=== PATIENT | male | born 1995 | race Caucasian/White ===

== ENCOUNTER 2021-04-22 16:09 | Emergency (ER) | payer SELFPAY ==
[~2021-04-22] VITALS: Ht 175 cm; Wt 86.1 kg
--- NOTE | 2021-04-22 16:39 | ED Abdominal Pain ---
General Chief Complaint: Abdominal/GI Problems Stated Complaint: ABD PAIN Nursing Triage Note: Patient ambulatory to ER with c/o upper abdominal pain x 3 days. Patient states the pain is intermittent and describes it as dull that turns into sharp pain. Pt denies any nausea, vomiting or diarrhea. Source of Information: Patient Exam Limitations: No Limitations History of Present Illness Date Seen by Provider: Apr 22, 2021 Time Seen by Provider: 16:30 Initial Comments Patient is a 25-year-old male who presents to the emergency department today with a chief complaint of left-sided abdominal pain. Patient states onset about 3 days ago. He states its been constant. Nothing really makes it any worse. He states he has been getting up in the middle of the night to eat and he thinks that may make it feel little bit better. Patient denies any nausea or vomiting. No fevers or chills. He has been taking 2 or 3 ibuprofen at a time 2 or 3 times a day for the pain. No urinary complaints. Patient does state that over the course of the last year he has had multiple episodes of bloody stool. He states it will come on and turn the toilet red. He states it goes away on its own. He has never been seen by For this before. No family history of colon cancer that he is aware of but his dad did about 10 years ago from lung cancer. Patient does not smoke cigarettes anymore. Does not really drink alcohol. All other review of systems reviewed and negative except as stated. Timing/Duration: 2-3 Days Severity/Quality: Aching, Cramping Location: LUQ, LLQ Radiation: No Radiation Activities at Onset: None Modifying Factors: Improves With Analgesics Associated Symptoms: Denies Symptoms Allergies and Home Medications Allergies Coded Allergies: No Known Drug Allergies (Unverified , 04/22/21) Patient Home Medication List Home Medication List Reviewed: Yes Review of Systems Review of Systems Constitutional: see HPI EENTM: No Symptoms Reported Respiratory: No Symptoms Reported Gastrointestinal: Abdominal Pain Genitourinary: No Symptoms Reported Musculoskeletal: no symptoms reported Skin: no symptoms reported All Other Systems Reviewed Negative Unless Noted: Yes Past Feabovy-Mrtmhn-Wiksco Hx Patient Social History Tobacco Use?: No Smokeless Tobacco Frequency: Current Everyday User Use of E-Cig and/or Vaping dev: No Substance use?: No Alcohol Use?: Yes Alcohol type: Beer Alcohol Frequency: Rarely Pt feels they are or have been: No Past Medical History Surgery/Hospitalization HX: ACL repair left knee Physical Exam Vital Signs Vital Signs - First Documented 04/22/21 16:18 Temp 37.0 Pulse 92 Resp 16 B/P (MAP) 136/84 (101) Pulse Ox 99 O2 Delivery Room Air Capillary Refill : Less Than 3 Seconds Height/Weight/BMI Height: '" Weight: lbs. oz. kg; 28.00 BMI Method: General Appearance: WD/WN, no apparent distress HEENT: PERRL/EOMI Respiratory: lungs clear, normal breath sounds, no respiratory distress, no accessory muscle use Cardiovascular: regular rate, rhythm Gastrointestinal: normal bowel sounds, non tender, soft, no organomegaly Extremities: normal range of motion, normal inspection Neurologic/Psychiatric: alert, normal mood/affect, oriented x 3 Skin: normal color, warm/dry Progress/Results/Core Measures Results/Orders Lab Results Laboratory Tests Test 04/22/21 16:23 Range/Units White Blood Count 7.5 4.3-11.0 10^3/uL Red Blood Count 4.97 4.30-5.52 10^6/uL Hemoglobin 14.5 13.3-17.7 g/dL Hematocrit 44 40-54 % Mean Corpuscular Volume 88 80-99 fL Mean Corpuscular Hemoglobin 29 25-34 pg Mean Corpuscular Hemoglobin Concent 33 32-36 g/dL Red Cell Distribution Width 13.2 10.0-14.5 % Platelet Count 290 130-400 10^3/uL Mean Platelet Volume 10.3 9.0-12.2 fL Immature Granulocyte % (Auto) 0 % Neutrophils (%) (Auto) 77 H 42-75 % Lymphocytes (%) (Auto) 15 12-44 % Monocytes (%) (Auto) 7 0-12 % Eosinophils (%) (Auto) 1 0-10 % Basophils (%) (Auto) 0 0-10 % Neutrophils # (Auto) 5.8 1.8-7.8 10^3/uL Lymphocytes # (Auto) 1.1 1.0-4.0 10^3/uL Monocytes # (Auto) 0.5 0.0-1.0 10^3/uL Eosinophils # (Auto) 0.1 0.0-0.3 10^3/uL Basophils # (Auto) 0.0 0.0-0.1 10^3/uL Immature Granulocyte # (Auto) 0.0 0.0-0.1 10^3/uL Sodium Level 141 135-145 MMOL/L Potassium Level 3.8 3.6-5.0 MMOL/L Chloride Level 104 98-107 MMOL/L Carbon Dioxide Level 26 21-32 MMOL/L Anion Gap 11 5-14 MMOL/L Blood Urea Nitrogen 17 7-18 MG/DL Creatinine 1.04 0.60-1.30 MG/DL Estimat Glomerular Filtration Rate > 60 BUN/Creatinine Ratio 16 Glucose Level 92 70-105 MG/DL Calcium Level 9.8 8.5-10.1 MG/DL Corrected Calcium 8.5-10.1 MG/DL Total Bilirubin 0.4 0.1-1.0 MG/DL Aspartate Amino Transf (AST/SGOT) 29 5-34 U/L Alanine Aminotransferase (ALT/SGPT) 39 0-55 U/L Alkaline Phosphatase 43 40-136 U/L Total Protein 7.4 6.4-8.2 GM/DL Albumin 4.8 H 3.2-4.5 GM/DL Lipase 70 8-78 U/L My Orders Orders - ROYCE PEÑA MD Cbc And Manual Diff (04/22/21 16:36) Ed Iv/Invasive Line Start (04/22/21 16:36) Comprehensive Metabolic Panel (04/22/21 16:36) Lipase (04/22/21 16:36) Vital Signs/I&O 04/22/21 16:18 Temp 37.0 Pulse 92 Resp 16 B/P (MAP) 136/84 (101) Pulse Ox 99 O2 Delivery Room Air Blood Pressure Mean: 101 Departure Impression Primary Impression: Abdominal pain Qualified Codes: R10.32 - Left lower quadrant pain Disposition: HOME, SELF-CARE Condition: Stable Departure-Patient Inst. Decision time for Depature: 17:30 Referrals: [facility] [place] [place],LOCAL PHYSICIAN (PCP) Primary Care Physician Patient Instructions: Abdominal Pain, Adult ED Add. Discharge Instructions: Drink plenty of fluids to stay well-hydrated. Continue to take ibuprofen 2 to 3 tablets every 6 hours as needed for pain you can alternate with a little Tylenol. I would recommend you take an acid pharmacy retail support specialist such as [id number] Pepcid, Zantac or Prilosec for the next couple of weeks daily to help alleviate your symptoms. You will need to follow-up with a primary care provider regarding your bloody stools. Come back to the emergency department for any worsening pain especially with nausea vomiting, fever or any other emergent concerning symptoms. ROYCE PEÑA MD Apr 22, 2021 16:39
[2021-04-22 16:51] LABS: ALBUMIN 4.8 GM/DL (3.2-4.5)
[2021-04-22 16:52] LABS: BASOPHILS % (AUTO) 0 % (0-10); CHLORIDE 104 MMOL/L (98-107); EOSINOPHILS # (AUTO) 0.1 10^3/uL (0.0-0.3); EOSINOPHILS % (AUTO) 1 % (0-10); HEMATOCRIT 44 % (40-54); HEMOGLOBIN 14.5 g/dL (13.3-17.7); LYMPHOCYTES # (AUTO) 1.1 10^3/uL (1.0-4.0); LYMPHOCYTES % (AUTO) 15 % (12-44); MEAN CORPUSCULAR HEMOGLOBIN 29 pg (25-34); MEAN CORPUSCULAR HGB CONC 33 g/dL (32-36); MEAN CORPUSCULAR VOLUME 88 fL (80-99); MEAN PLATELET VOLUME 10.3 fL (9.0-12.2); MONOCYTES # (AUTO) 0.5 10^3/uL (0.0-1.0); MONOCYTES % (AUTO) 7 % (0-12); NEUTROPHILS # (AUTO) 5.8 10^3/uL (1.8-7.8); NEUTROPHILS % (AUTO) 77 % (42-75); PLATELET COUNT 290 10^3/uL (130-400); POTASSIUM 3.8 MMOL/L (3.6-5.0); SODIUM 141 MMOL/L (135-145); WHITE BLOOD COUNT 7.5 10^3/uL (4.3-11.0)
[2021-04-22 16:53] LABS: CALCIUM 9.8 MG/DL (8.5-10.1)
[2021-04-22 16:54] LABS: GLUCOSE 92 MG/DL (70-105); TOTAL PROTEIN 7.4 GM/DL (6.4-8.2)
[2021-04-22 16:55] LABS: CARBON DIOXIDE 26 MMOL/L (21-32)
[2021-04-22 16:56] LABS: BILIRUBIN,TOTAL 0.4 MG/DL (0.1-1.0)
[2021-04-22 16:57] LABS: ALKALINE PHOSPHATASE 43 U/L (40-136); CREATININE SERUM 1.04 MG/DL (0.60-1.30); GFR ESTIMATED > 60
[2021-04-22 16:59] LABS: BUN/CREATININE RATIO 16
[2021-04-22 17:00] LABS: ALANINE AMINOTRANSFERASE 39 U/L (0-55)
[2021-04-22 17:01] LABS: LIPASE 70 U/L (8-78)
[2021-04-22 17:41] VITALS: BP 123/57
[2021-04-22 18:03] LABS: LYMPHOCYTES % (MANUAL) 22 %; MONOCYTES % (MANUAL) 6 %; NEUTROPHILS % (MANUAL) 72 %; RBC MORPH NORMAL
== END 2021-04-22 17:42 | disposition home or self-care (01) ==
LOC: ER 16:11
DX: R10.31 Right lower quadrant pain (principal); R10.32 Left lower quadrant pain; F17.290 Nicotine dependence, other tobacco product, uncomplicated
CPT/HCPCS: 36415; 80053; 83690; 85007; 85027

== ENCOUNTER 2021-05-28 16:23 | Emergency (ER) | payer SELFPAY ==
[~2021-05-28] VITALS: Ht 175 cm; Wt 84.0 kg
--- OUTSIDE RECORDS SUMMARY | 2021-05-28 16:29 | XMS REPORT | Clinical Summary ---
Author Author [facility] Address Unknown Phone Unavailable Care Team Providers Care [employer] Dean Name Role Phone Bryanna Smith MD PCP Allergies Not on File Medications Not on file Active Problems Not on file Social History Date Tobacco Use Types Packs/Day Years Used Never Assessed Sex Assigned at Date Recorded Not on file Last Filed Vital Signs Not on file Plan of Treatment Health Maintenance Due Date Last Done Comments Varicella Vaccines (1 of 1995 2 - 2-dose childhood series) HPV Vaccines (1 - Male 2005 2-dose series) COVID-19 Vaccine (1) 2006 Hepatitis C Screening 2012 DTaP,Tdap,and Td Vaccines 2013 (1 - Tdap) MMR Vaccines-Adult 2013 Influenza Vaccine (#1) 2021 Pneumo-Vaccine: 65+Yrs (1 2059 of 1 - PPSV23) HIB Vaccines Aged Out No longer eligible based on patient's age to complete this topic IPV Vaccines Aged Out No longer eligible based on patient's age to complete this topic Meningococcal Vaccine Aged Out No longer eligib le based on patient's age to complete this topic Pneumo-Vaccine: Peds (0-5 Aged Out No longer el igible based on patient's age to Yrs) & At-Risk Patients complete this topic (6-64 Yrs) Rotavirus Vaccines Aged Out No longer eligible based on patient's age to complete this topic Results Not on filefrom Last 3 Months Insurance Type Payer Benefit Subscriber ID Effective Phone Address Plan / Dates Group COMMERCIAL INSURANCE COMMERCIAL [id number] 2015 [id number] -[place] [place] [place] [address] Advance Directives For more information, please contact: [phone] Patient Cyber Security Manager Explanation Type Date Recorded Advance Directives and Living Will Power of Rose Grower Care Teams Start Date End Date [employer] Dean Relationship Specialty 05/10/15 Bryanna Smith MD PCP - General [address] [place] [address]
--- NOTE | 2021-05-28 16:38 | ED Syncope ---
General Chief Complaint: Dizziness/Syncope Stated Complaint: SYNCOPE Source of Information: Patient, EMS Exam Limitations: No Limitations History of Present Illness Date Seen by Provider: May 28, 2021 Time Seen by Provider: 16:25 Initial Comments Patient is a 25-year-old male who presents to the emergency department by ambulance today with a chief complaint of syncope. Patient reportedly was going outside to check the mail and when he did not return back inside the house family members went out to find him passed out on the porch. Patient states he does not have a whole lot of memory of the events of the day. He works nights at [employer] Patient states that he slept about 4 5 hours today. He states that he did eat while on shift last night. He denies any headache, vision changes, nausea, abdominal pain. No chest pain or shortness of breath. Patient does not believe that he hit his head. Patient does not take any medications on a daily basis. States that he does not smoke, drink or do any illicit drugs. Has not been ill recently. Is not Covid vaccinated. Denies sick contacts. States he has never had a syncopal event before. Wonders if it might be "the heat". No family history of heart disease or sudden cardiac . Currently states that he is feeling better and almost back to normal. Of note the patient is quite tachycardic on arrival in the 120s with a normal blood pressure, oxygen saturations 94 to 95% on room air. All other review of systems reviewed and negative except as stated. Timing/Prior Episodes: No Prior History Symptoms Prior to Episode: Unknown Precipitating Factors: Standing (going outside to check the mail) Loss of Consciousness: Unsure Current Symptoms: Back to Normal Allergies and Home Medications Allergies Coded Allergies: No Known Drug Allergies (Unverified , 04/22/21) Patient Home Medication List Home Medication List Reviewed: Yes Review of Systems Constitutional: see HPI EENTM: no symptoms reported Respiratory: no symptoms reported Cardiovascular: no symptoms reported Gastrointestinal: no symptoms reported Genitourinary: no symptoms reported Musculoskeletal: no symptoms reported Skin: no symptoms reported Past [place]-Pdifns-Civrwk Hx Past Medical History Surgery/Hospitalization HX: ACL repair left knee Physical Exam Vital Signs Vital Signs - First Documented 05/28/21 16:28 Temp 36.5 Pulse 125 Resp 18 B/P (MAP) 131/68 (89) Pulse Ox 97 Capillary Refill : Height, Weight, BMI Height: '" Weight: lbs. oz. kg; 28.00 BMI Method: General Appearance: No Apparent Distress, WD/WN HEENT: PERRL/EOMI, Normal ENT Inspection Neck: Full Range of Motion, Normal Inspection, Non Tender, Supple Cardiovascular: Regular Rate, Rhythm, No Murmur, Normal Peripheral Pulses, Tachycardia Respiratory: Lungs Clear, Normal Breath Sounds, No Accessory Muscle Use, No Respiratory Distress Gastrointestinal: Non Tender, Soft Back: Normal Inspection Extremities: Normal Capillary Refill, Normal Inspection, Normal Range of Motion, Non Tender, No Calf Tenderness Neurologic/Psychiatric: Alert, Oriented x3, No Motor/Sensory Deficits, Normal Mood/Affect, ed transporter II-XII Norm as Tested, Other (no focal neurologic deficits) Cranial Nerves: Normal Hearing, Normal Speech, PERRL Motor/Sensory: No Motor Deficit, No Sensory Deficit Skin: Normal Color, Warm/Dry Progress/Results/Core Measures Results/Orders Lab Results Laboratory Tests Test 05/28/21 16:29 05/28/21 16:49 Range/Units White Blood Count 10.7 4.3-11.0 10^3/uL Red Blood Count 5.18 4.30-5.52 10^6/uL Hemoglobin 15.2 13.3-17.7 g/dL Hematocrit 48 40-54 % Mean Corpuscular Volume 93 80-99 fL Mean Corpuscular Hemoglobin 29 25-34 pg Mean Corpuscular Hemoglobin Concent 32 32-36 g/dL Red Cell Distribution Width 12.6 10.0-14.5 % Platelet Count 316 130-400 10^3/uL Mean Platelet Volume 10.6 9.0-12.2 fL Immature Granulocyte % (Auto) 0 % Neutrophils (%) (Auto) 51 42-75 % Lymphocytes (%) (Auto) 34 12-44 % Monocytes (%) (Auto) 10 0-12 % Eosinophils (%) (Auto) 4 0-10 % Basophils (%) (Auto) 1 0-10 % Neutrophils # (Auto) 5.5 1.8-7.8 10^3/uL Lymphocytes # (Auto) 3.6 1.0-4.0 10^3/uL Monocytes # (Auto) 1.1 H 0.0-1.0 10^3/uL Eosinophils # (Auto) 0.4 H 0.0-0.3 10^3/uL Basophils # (Auto) 0.1 0.0-0.1 10^3/uL Immature Granulocyte # (Auto) 0.0 0.0-0.1 10^3/uL Sodium Level 138 135-145 MMOL/L Potassium Level 4.8 3.6-5.0 MMOL/L Chloride Level 103 98-107 MMOL/L Carbon Dioxide Level 12 L 21-32 MMOL/L Anion Gap 23 H 5-14 MMOL/L Blood Urea Nitrogen 12 7-18 MG/DL Creatinine 1.39 H 0.60-1.30 MG/DL Estimat Glomerular Filtration Rate 62 BUN/Creatinine Ratio 9 Glucose Level 90 70-105 MG/DL Calcium Level 9.8 8.5-10.1 MG/DL Total Creatine Kinase 184 30-200 U/L Urine Color YELLOW Urine Clarity CLEAR Urine pH 6.0 5-9 Urine Specific [place] >=1.030 1.016-1.022 Urine Protein 1+ H NEGATIVE Urine Glucose (UA) NEGATIVE NEGATIVE Urine Ketones NEGATIVE NEGATIVE Urine Nitrite NEGATIVE NEGATIVE Urine Bilirubin NEGATIVE NEGATIVE Urine Urobilinogen 0.2 < = 1.0 MG/DL Urine Leukocyte Esterase NEGATIVE NEGATIVE Urine RBC (Auto) TRACE-I NEGATIVE Urine RBC 0-2 /HPF Urine WBC NONE /HPF Urine Squamous Epithelial Cells NONE /HPF Urine Renal Epithelial Cells NONE /HPF Urine Crystals NONE /LPF Urine Bacteria NEGATIVE /HPF Urine Casts NONE /LPF Urine Mucus NEGATIVE /LPF Urine Other LG SPERM H /HPF Urine Culture Indicated NO Urine Opiates Screen NEGATIVE NEGATIVE Urine Oxycodone Screen NEGATIVE NEGATIVE Urine Methadone Screen NEGATIVE NEGATIVE Urine Propoxyphene Screen NEGATIVE NEGATIVE Urine Barbiturates Screen NEGATIVE NEGATIVE Ur Tricyclic Antidepressants Screen NEGATIVE NEGATIVE Urine Phencyclidine Screen NEGATIVE NEGATIVE Urine Amphetamines Screen POSITIVE H NEGATIVE Urine Methamphetamines Screen NEGATIVE NEGATIVE Urine Benzodiazepines Screen NEGATIVE NEGATIVE Urine Cocaine Screen NEGATIVE NEGATIVE Urine Cannabinoids Screen NEGATIVE NEGATIVE My Orders Orders - ROYCE PEÑA MD Ed Iv/Invasive Line Start (05/28/21 16:34) Cbc With Automated Diff (05/28/21 16:34) Basic Metabolic Panel (05/28/21 16:34) Creatine Kinase (05/28/21 16:34) Ua Culture If Indicated (05/28/21 16:34) Drug Screen Stat (Urine) (05/28/21 16:34) Ekg Tracing (05/28/21 16:34) Chest 1 View, Ap/Pa Only (05/28/21 16:34) Ns Iv 1000 Ml (Sodium Chloride 0.9%) (05/28/21 16:45) Vital Signs/I&O 05/28/21 16:28 Temp 36.5 Pulse 125 Resp 18 B/P (MAP) 131/68 (89) Pulse Ox 97 Progress Progress Note : Time: 17:27 Progress Note Patient reevaluated after a liter of saline per EMS completed. Feeling better, heart rate down to 105. Labs reviewed, patient CBC is normal chemistry shows a slight bump in his creatinine. Urine is very concentrated at greater than 1.030. Patient will be given a second liter of IV fluids. Blood pressure is good oxygen saturations are normal. Patient is also noted to be positive for amphetamine on his drug screen. Denied any illicit drug use. Recently restarted Wellbutrin on his own. Does not have a local physician. Girlfriend at the bedside states that she thinks that he might of had a seizure when he fell down as he was shaking on the porch when she found him. No postictal state was described by EMS. Patient will be referred to [facility]. He is strongly encouraged to decrease his use of energy drinks and caffeine and focus on some water to improve his kidney function. Will be recommended to follow-up with repeat labs at [facility]. All questions are sought and answered. Patient is stable for discharge after his second liter of IV fluids. Initial ECG Impression Date: May 28, 2021 Initial ECG Impression Time: 16:41 Initial ECG Rate: 115 Initial ECG Rhythm: S.Tach Initial ECG Impression: Nonspecific Changes Diagnostic Imaging Diagonstic Imaging: Xray Plain Films/CT/US/NM/MRI: chest Comments [facility]. [place], [place] NAME: FLAVIO ALEXANDER MED REC#: [id number] PT STATUS: REG ER : 1995 PHYSICIAN: ROYCE PEÑA MD ADMIT DATE: 05/28/21/ER Draft Date of Exam:05/28/21 CHEST 1 VIEW, AP/PA ONLY INDICATION: Syncope. TIME OF EXAM: 5:04 p.m. COMPARISON: No prior studies are available for comparison. FINDINGS: The heart size is normal. The pulmonary vascularity is unremarkable. The lungs are clear. No infiltrate, effusion or pneumothorax is detected. IMPRESSION: No acute cardiopulmonary process is detected. Dictated on workstation # [id number] Dict: 05/28/21 1709 Trans: 05/28/21 1712 [id number] Interpreted by: ISH DAVENPORT MD Electronically signed by: Departure Impression Primary Impression: Syncope Qualified Codes: R55 - Syncope and collapse Additional Impression: Dehydration Disposition: 01 HOME, SELF-CARE Condition: Stable Departure-Patient Inst. Decision time for Depature: 17:29 Referrals: [facility] [place],LOCAL PHYSICIAN (PCP) Primary Care Physician Patient Instructions: Dehydration, Adult (DC) Add. Discharge Instructions: I would hold off taking any more Wellbutrin until you follow-up with a primary care physician. Drink lots of fluids to stay well-hydrated. Watch your use of energy drinks and caffeine overall. You should follow-up with [facility], contact information is provided in this discharge packet. You will likely need your kidney function rechecked in a couple of weeks. Return to the emergency room for any new, concerning or worsening complaints Work/School Note: Work Release Form Date Seen in the Emergency Department: May 28, 2021 Return to Work: May 29, 2021 ROYCE PEÑA MD May 28, 2021 16:38
[2021-05-28 16:40] LABS: BASOPHILS # (AUTO) 0.1 10^3/uL (0.0-0.1); BASOPHILS % (AUTO) 1 % (0-10); EOSINOPHILS # (AUTO) 0.4 10^3/uL (0.0-0.3); EOSINOPHILS % (AUTO) 4 % (0-10); HEMATOCRIT 48 % (40-54); HEMOGLOBIN 15.2 g/dL (13.3-17.7); LYMPHOCYTES # (AUTO) 3.6 10^3/uL (1.0-4.0); LYMPHOCYTES % (AUTO) 34 % (12-44); MEAN CORPUSCULAR HEMOGLOBIN 29 pg (25-34); MEAN CORPUSCULAR HGB CONC 32 g/dL (32-36); MEAN CORPUSCULAR VOLUME 93 fL (80-99); MEAN PLATELET VOLUME 10.6 fL (9.0-12.2); MONOCYTES # (AUTO) 1.1 10^3/uL (0.0-1.0); MONOCYTES % (AUTO) 10 % (0-12); NEUTROPHILS # (AUTO) 5.5 10^3/uL (1.8-7.8); NEUTROPHILS % (AUTO) 51 % (42-75); PLATELET COUNT 316 10^3/uL (130-400); WHITE BLOOD COUNT 10.7 10^3/uL (4.3-11.0)
[2021-05-28 16:54] LABS: BILIRUBIN,URINE NEGATIVE (NEGATIVE); CLARITY,URINE CLEAR; COLOR,URINE YELLOW; GLUCOSE, URINE (UA) NEGATIVE (NEGATIVE); KETONES,URINE NEGATIVE (NEGATIVE); LEUKOCYTE ESTERASE ,URINE NEGATIVE (NEGATIVE); NITRITE,URINE NEGATIVE (NEGATIVE); PROTEIN,URINE 1+ (NEGATIVE)
[2021-05-28 16:57] LABS: POTASSIUM 4.8 MMOL/L (3.6-5.0)
[2021-05-28 16:59] LABS: CALCIUM 9.8 MG/DL (8.5-10.1)
[2021-05-28 17:02] LABS: BACTERIA,URINE NEGATIVE /HPF; RBC,URINE 0-2 /HPF
[2021-05-28 17:03] LABS: CREATININE SERUM 1.39 MG/DL (0.60-1.30)
[2021-05-28 17:03] LABS: URINE OTHER LG SPERM /HPF
[2021-05-28 17:05] LABS: AMPHETAMINE SCREEN, URINE POSITIVE (NEGATIVE); BARBITURATE SCREEN URINE NEGATIVE (NEGATIVE); BENZODIAZEPINES SCREEN URINE NEGATIVE (NEGATIVE); CANNABINOID SCREEN, URINE NEGATIVE (NEGATIVE); COCAINE SCREEN URINE NEGATIVE (NEGATIVE); METHADONE STAT NEGATIVE (NEGATIVE); METHAMPHETAMINE SCREEN URINE S NEGATIVE (NEGATIVE); OPIATE SCREEN URINE NEGATIVE (NEGATIVE); OXYCODONE STAT NEGATIVE (NEGATIVE); PROPOXYPHENE STAT NEGATIVE (NEGATIVE); TRICYCLIC ANTIDEPRESSANTS SCRE NEGATIVE (NEGATIVE)
[2021-05-28] MEDS: NS IV 1000 ML 1,000 ML IV SCH ×2 (17:12→17:31)
--- NOTE | 2021-05-28 17:12 | Diagnostic Imaging Report ---
INDICATION: Syncope. TIME OF EXAM: 5:04 p.m. COMPARISON: No prior studies are available for comparison. FINDINGS: The heart size is normal. The pulmonary vascularity is unremarkable. The lungs are clear. No infiltrate, effusion or pneumothorax is detected. IMPRESSION: No acute cardiopulmonary process is detected. Dictated by: Dictated on workstation # [id number]
[2021-05-28 18:32] VITALS: BP 117/67
== END 2021-05-28 18:36 | disposition home or self-care (01) ==
LOC: EDUNIT# 16:23 → ER 16:25
DX: R55 Syncope and collapse (principal); E86.0 Dehydration
CPT/HCPCS: 36415; 71045; 80048; 80306; 81000; 82550; 85025; 93005